=== PATIENT | female | born 1995 | race African-American/Black ===

== ENCOUNTER 2022-06-01 06:57 | Emergency (ER) | payer BC, SELFPAY ==
[2022-06-01] MEDS ORDERED: Ketorolac Tromethamine 60 MG/2 ML VIAL ONE (07:57)
[2022-06-01] MEDS ORDERED: Amoxicillin/Potassium Clav 875 MG TAB ONE (09:20)
== END 2022-06-01 09:50 | disposition home or self-care (01) ==
LOC: NAV ERS 06:57
DX: S02.40CA Maxillary fracture, right side, initial encounter for closed fracture (principal); S00.83XA Contusion of other part of head, initial encounter; Y23.0XXA Shotgun discharge, undetermined intent, initial encounter; Z87.891 Personal history of nicotine dependence
CPT/HCPCS: 70450; 70486; 96372; J1885